=== PATIENT | male | born 1990 | race Caucasian/White ===

== ENCOUNTER 2017-09-04 20:23 | Emergency (ER) | payer MEDICAID, SELFPAY ==
[2017-09-04 20:25] VITALS: BP 155/77; PULSE 94; RESP 18; TEMP 37.2; O2SAT 94; BMI 25.8
--- NOTE | 2017-09-04 20:59 | RAD_ITS ---
STUDY: X-RAY - RIGHT ELBOW REASON FOR EXAM: Male, 26 years old. Pain and swelling. TECHNIQUE: 3 view(s) of the elbow. COMPARISON: None. FINDINGS: Normal visualized humerus, radius and ulna. Normal radiocapitellar and ulnotrochlear articulations. The soft tissue structures are unremarkable. There is no demonstrated fracture. RAD/Elbow min 3 Views IMPRESSION: Normal x-ray examination of the elbow. Electronically Signed: Medhat Bhatia MD at 21:34 EDT , Service support ,
[2017-09-04] MEDS: HYDROcodone Bitartrate/Apap 5/325 Tablet PO (21:26)
[2017-09-04] MEDS: Naproxen 500 MG Tablet PO (21:26)
[2017-09-04] MEDS: DiphenhydrAMINE 25 MG Capsule 50 MG PO (21:26)
--- NOTE | 2017-09-04 21:27 | NURSING ---
SCANNER DID NOT WORK IN THE PT ROOM
--- NOTE | 2017-09-04 22:14 | ED.VISSUMM ---
- ER Visit Summary Date of Service: 09/04/17 Chief Complaint: Bug bite right elbow History of Present Illness: The patient is a 26 M who has no primary care physician. He reports that yesterday he was mowing lawns and felt a sharp pain to his right elbow. He believes that he was bit by something. However, he was also mowing through trees and may have been stuck by something. He reports that he is a throbbing pain in his right elbow that is 10 out of 10 at worst 910 currently. Is worsened by bending or squeezing. He is not taking anything for pain. He denies any associated fever or chills. He does not want to do this is Workmen's Comp. He is right-hand dominant. Physical Examination: Vitals: Stable. Afebrile. General: Well-nourished and well-developed. Head: Normocephalic atraumatic. Neck: Supple, no lymphadenopathy. No JVD. Nontender. Cardiovascular: Regular rate and rhythm. No murmurs. Respiratory: No respiratory distress. Clear to auscultation bilaterally. Abdominal: Soft, nontender, nondistended, normal bowel sounds. No guarding, rebound, or peritoneal signs. Back: Nontender. Extremities: All surface of his right elbow is approximately 6 cm area of erythema with 1 cm scab in the center of this. There is no induration or fluctuance. There is no lymphangitic spread. He has no other rash.. Skin: Normal color, no rash. Neurologic: Alert and oriented ?3. Cranial nerves II through XII are intact. Normal strength and sensation. Psych: Normal affect. Test Results: Right elbow x-ray is negative. Emergency Department Course and Treatment: Discussion the patient that I suspect this is actually an allergic reaction rather than an infection. He is given a dose of Benadryl p.o. Repeat exam in hour later shows that the erythema has improved greatly. Patient was then given prednisone p.o. Treatment Plan: Patient will be discharged on Zyrtec and prednisone. In[facility] days for a wound check. He is instructed to return to the emergency department if he is worsening. Disposition: To home in improved and stable condition. Impression: 1. Localized allergic reaction to insect bite. This note was generated with Dragon dictation software. It may contain incorrect words, spelling, and punctuation that were not noted in review of the chart prior to signing ED Disposition - Plan for ED Patient: Disposition: Home or Assisted Living Chief Complaint: Abscess Instructions: ED Bite Sting Insect Local Allergic React Prescriptions: Cetirizine HCl [Zyrtec] 10 mg PO DAILY #14 tablet Prednisone [Deltasone] 60 mg PO DAILY #15 tablet Referrals: [facility] [NON-STAFF] - 2 Days for wound check
[2017-09-04 22:32] VITALS: RESP 18
[2017-09-04] MEDS: predniSONE 20 MG Tablet 60 MG PO (22:32)
== END 2017-09-04 22:33 | disposition home or self-care (01) ==
PROVIDERS: Emergency Provider Emergency Medicine
DX: S50.361A Insect bite (nonvenomous) of right elbow, initial encounter (principal); W57.XXXA Bitten or stung by nonvenomous insect and other nonvenomous arthropods, initial encounter; Y93.H2 Activity, gardening and landscaping; Y92.9 Unspecified place or not applicable; Z72.0 Tobacco use
CPT/HCPCS: 73080; 99283

== ENCOUNTER 2017-10-04 20:04 | Emergency (ER) | payer MEDICAID, SELFPAY ==
[2017-10-04 20:04] VITALS: BP 112/83; PULSE 93; RESP 20; TEMP 36.7; O2SAT 95; BMI 24.7
--- NOTE | 2017-10-04 20:40 | RAD_ITS ---
STUDY: X-RAY - RIGHT WRIST REASON FOR EXAM: Male, 27 years old. Pain, injury TECHNIQUE: 3 view(s) of the wrist were obtained. COMPARISON: None. FINDINGS: Normal visualized distal radius and ulna. Normal radiocarpal articulation. Normal distal radioulnar articulation. Normal carpal bones. Normal carpal articulations. Normal carpometacarpal articulation of the thumb. Normal second through fifth carpometacarpal articulations. Normal visualized metacarpal bones. The soft tissue structures are unremarkable. RAD/Wrist min 3 Views IMPRESSION: Normal x-ray examination of the wrist. Electronically Signed: Abner Singh DO at 21:57 EDT Tel [phone], Service support ,
--- NOTE | 2017-10-04 21:08 | RAD_ITS ---
STUDY: X-RAY - RIGHT HAND REASON FOR EXAM: Male, 27 years old. Hand pain after acute injury. TECHNIQUE: 3 view(s) of the hand. COMPARISON: None. FINDINGS: Normal radiocarpal articulation. Normal distal radioulnar joint. Normal visualized carpal bones. Normal carpal articulations Normal carpometacarpal articulation of the thumb. Normal second through fifth carpometacarpal joints. Prior healed fracture deformity at the base of the fifth metacarpal. Normal metacarpophalangeal joint of the thumb. Normal interphalangeal joint of the thumb. Normal proximal and distal phalanges of the thumb. Normal metacarpophalangeal joints of the second through fifth fingers. Normal proximal and distal interphalangeal joints of the second through fifth fingers. Normal phalanges of the second through fifth fingers. Soft tissue swelling. RAD/Hand Min 3 Views IMPRESSION: Soft tissue swelling without underlying acute fracture or dislocation. Old fracture deformity at the base of the fifth metacarpal. Electronically Signed: Jordyn Sahu MD at 21:58 EDT , Service support ,
--- NOTE | 2017-10-04 22:53 | ED.VISSUMM ---
- ER Visit Summary Date of Service: 10/04/17 Chief Complaint: Right wrist and hand pain History of Present Illness: The patient is a 27 M dominant. He has an old boxer's fracture of his right hand. He was cutting grass riding mower when he hit his hand versus a tree. No other injuries. This occurred 2 days ago. Denies any prior hand surgery. Physical Examination: Well-appearing young male. Vital signs are stable afebrile. HEENT exam unremarkable neck nontender lungs clear to auscultation heart regular rate and rhythm no murmur. Chest nontender abdomen soft nontender he is moving all 4 extremities are neurovascularly intact. Specifically his right shoulder and elbow are nontender. His distal right forearm primarily dorsum of the wrist and proximal dorsum of his right hand is tender mildly swollen with decreased range of motion due to discomfort. There is no gross bony deformity. The hand is neurovascularly intact. Skin is intact. Normal radial pulse. Normal cap refill. Normal sensation. Test Results: Right wrist x-ray showed no acute abnormality 3 views read by myself the radiologist. Right hand x-ray showed an old right fifth metacarpal fracture but no acute abnormality again read by myself the radiologist. Emergency Department Course and Treatment: Motrin for pain. Treatment Plan: Right hand and wrist contusion. Ice and elevate. Motrin for pain. Follow-up with Dr. Titus if not improving in 1 week. Disposition: dc Impression: Right hand and right wrist contusion This note was generated with [employer] dictation software. It may contain incorrect words, spelling, and punctuation that were not noted in review of the chart prior to signing ED Disposition - Plan for ED Patient: Chief Complaint: Upper Extremity Injury Referrals: Care Physician,No Primary [Primary Care Provider] -
--- NOTE | 2017-10-04 22:55 | ED.DEP ---
ED Disposition - Plan for ED Patient: Disposition: Home or Assisted Living Chief Complaint: Upper Extremity Injury Instructions: ED Contusion Upper Ext Referrals: Ashely Titus DO [STAFF PHYSICIAN] - 1 Week if not improving Additional Instructions: Ice and elevate. Motrin for pain and swelling. Follow-up with the orthopedic physician if not improving in 1 week.
[2017-10-04 23:04] VITALS: RESP 18; O2SAT 98
== END 2017-10-04 23:05 | disposition home or self-care (01) ==
PROVIDERS: Emergency Provider Emergency Medicine
DX: S60.221A Contusion of right hand, initial encounter (principal); S60.211A Contusion of right wrist, initial encounter; W22.09XA Striking against other stationary object, initial encounter; Y93.H2 Activity, gardening and landscaping; Y92.9 Unspecified place or not applicable; Y99.9 Unspecified external cause status; Z72.0 Tobacco use
CPT/HCPCS: 73110; 73130; 99282

== ENCOUNTER 2017-10-18 21:09 | Inpatient (IN) | payer MEDICAID, SELFPAY ==
[2017-10-18] VITALS (7 sets, daily range): BP systolic 119–146; BP diastolic 58–88; PULSE 89–106; RESP 12–28; TEMP 36.3–36.4; O2SAT 86–99; BMI 25.2; BMI 25.0
--- NOTE | 2017-10-18 21:20 | RAD_ITS ---
STUDY: X-RAY CHEST REASON FOR EXAM: Male, 27 years old. Heroin overdose status post Narcan. TECHNIQUE: Single AP portable view of the chest. COMPARISON: Prior chest radiograph of November 20, 2016. FINDINGS: Negative for pneumothorax. Mild diffuse asymmetric density of the right lung relative to the left which may be secondary to the patient's position as the patient is rotated towards the left. Otherwise negative for major consolidation, focal atelectasis or a substantial pleural effusion. Normal size heart. Normal mediastinum and marge. Normal visualized pulmonary arteries. Normal visualized aortic arch and descending thoracic aorta. Normal visualized thoracic spine. Normal visualized ribs, clavicles, and shoulders. There is no demonstrated abnormality of the visualized soft tissue structures of the upper abdomen. RAD/Chest 1 View (Portable) IMPRESSION: Asymmetric mild haziness of the right mid and lower lung zone. Early infiltrate? Asymmetric density secondary to position as the patient is turned towards the left. No additional consolidation, focal atelectasis, cardiomegaly or substantial pleural effusion. Electronically Signed: Jordyn Sahu MD at 22:05 EDT , Service support ,
[2017-10-18] MEDS: Ondansetron 4 MG/2 ML Vial IV (21:36)
[2017-10-18] MEDS: Naloxone 2 MG/2 ML Syringe NS (21:36)
[2017-10-18] MEDS: Naloxone 2 MG/2 ML Syringe 4 MG IV (22:09)
[2017-10-18] MEDS: proMETHazine 25 MG/ML Syringe 6.25 MG IV (22:09)
--- NOTE | 2017-10-18 22:18 | ED.RN ---
Pt's oxygen in mid 80s on NRB, placed on bipap (see resp settings)- pt now at 99%. gf and grandfather at bedside. mother and sister previously here and will return.
[2017-10-18 22:19] LABS: Absolute Lymphocyte Count 1.78 X10^3/ul (0.83-4.51); Absolute Neutrophil Count 16.9 X10^3/uL (2.0-7.7); Basophil# 0.03 X10^3/uL; Basophil% 0.2 % (0-1); Eosinophil# 0.08 X10^3/uL; Eosinophils% 0.4 % (0-5); Hematocrit 42.2 % (40-54); Hemoglobin 14.5 g/dl (13.0-16.5); Lymphocyte # 1.78 X10^3/ul (4.0); Lymphocyte % 9.1 % (19-41); Mean Corp Hgb Conc 34.4 g/gl (32-36); Mean Corpuscular Hgb 28.5 pg (27.0-32.0); Mean Corpuscular Volume 83.1 fL (80-94); Mean Platelet Vol. 9.7 fl (6.2-12.0); Monocyte# 0.64 X10^3/uL; Monocyte% 3.3 % (0-10); Neutrophil # 16.94 X10^3/uL (2.7-7.7); Neutrophil % 86.8 % (47-70); Platelet Count 268 K/mm3 (150-450); RBC Distribution Width CV 13.3 % (11.6-14.6); RBC Distribution Width SD 40.4 fl (35.1-43.9); Red Blood Count 5.08 M/mm3 (4.6-6.2); White Blood Count 19.5 K/mm3 (4.4-11.0)
[2017-10-18 22:20] LABS: POSITIVE COUNT NO; POSITIVE DIFFERENTIAL NO; POSITIVE MORPHOLOGY NO
[2017-10-18 22:30] LABS: Anion Gap 8 (5-15); BUN 19 mg/dL (7-18); Calcium,Total 8.5 mg/dL (8.5-10.1); Chloride 110 mmol/L (98-107); Creatinine, Serum 1.27 mg/dL (0.70-1.30); EST Glomerular Filtration Rate 72 mL/min (>60); Est Glom Filt Rate - Afr Amer 87 mL/min (>60); Estimated Creatinine Clearance 89.41 ml/min; Glucose 96 mg/dL (74-106); Potassium 3.9 mmol/L (3.5-5.1); Sodium Level 144 mmol/L (136-145)
--- NOTE | 2017-10-18 22:34 | ED.VISSUMM ---
- ER Visit Summary Date of Service: 10/18/17 Chief Complaint: Heroin overdose History of Present Illness: The patient is a 27 M presenting after heroin overdose. Patient was found with agonal respirations. He was given Narcan per EMS. On arrival he opens eyes to voice. Admits to heroin abuse. He has nausea and vomiting. Physical Examination: Vitals are stable. Patient is afebrile. Pulse ox 85% on room air. alert no acute distress. HEENT exam is unremarkable. Neck is supple. Lungs are clear and equal bilaterally. Heart is regular rate and rhythm. Abdomen is soft nontender nondistended. Extremities are unremarkable. Skin is warm and dry. No focal neurologic deficit. Opens eyes to voice and follows commands Remainder of exam is unremarkable. Emergency Department Course and Treatment: Patient was given Narcan, Zofran on arrival. He is awake and breathing but his oxygen saturation remains low in the 80s. He was given Phenergan for additional nausea. His nausea has now improved and he was placed on BiPAP. Chest x-ray shows asymmetric mild haziness of the right mid and lower lung zone. Early infiltrate? Asymmetric density secondary to position as the patient is turned towards the left. No additional consolidation, focal atelectasis, cardiomegaly or substantial pleural effusion. CBC shows a white count of 19.5. Chemistry is unremarkable. Alcohol negative. Patient was given Unasyn for aspiration. Discussed with the hospitalist for admission. Disposition: Admission Impression: Heroin overdose, respiratory failure, aspiration This note was generated with [employer] dictation software. It may contain incorrect words, spelling, and punctuation that were not noted in review of the chart prior to signing ED Disposition - Plan for ED Patient: Chief Complaint: Overdose Referrals: Care Physician,No Primary [Primary Care Provider] -
--- NOTE | 2017-10-18 22:58 | HP.PCM_ITS ---
Problem List (1) Heroin overdose Status: Acute Qualifiers: Encounter type: initial encounter (2) Aspiration into airway Status: Acute Qualifiers: Encounter type: initial encounter Qualified Code(s): T17.908A - Unspecified foreign body in respiratory tract, part unspecified causing other injury, initial encounter History of Present Illness Date of Admission: 10/18/17 Chief Complaint: aspiration, heroin overdose The patient is a 27 year old M who was seen in the emergency room at [facility] after being brought in by squad due to agonal breathing and suspected heroin overdose. Patient also vomited according to information obtained. Patient was given Narcan by squad. Review of systems was unobtainable from the patient on my examination due to lethargy and somnolence. Patient was given additional Narcan by the emergency room, patient had a total of 2 mg intranasally and 4 mg IV by the ER as well as a 2 mg intranasally by squad. Patient's pulse ox was noted to be in 85% on room air, patient was placed on 6 L via nasal cannula but then had to be placed on BiPAP to maintain his O2 sat. Lab was obtained in the emergency room as well as a chest x-ray, labs were remarkable for a white blood cell count of 19.5, his BUN was 19. Chest x-ray revealed a right lower lobe infiltrate. I was not able to obtain information from the patient due to his somnolence and lethargy, patient's family members were in the room and I was able to obtain a medical history, patient has been using IV heroin for 6 years and according to his sister has overdosed many times. Patient appears stable at this time to be admitted to PCU, he was given IV Unasyn in the emergency room and I will continue this on the floor, he will have aerosol treatments, his O2 sat will be monitored. Patient will be admitted for acute aspiration, heroin overdose, and hypoxic respiratory failure secondary to heroin overdose with vomiting and aspiration Past Medical History Allergies No Known Allergies Allergy (Verified 10/04/17 20:07) Home Medications: Ambulatory Orders Medication Instructions Recorded NK [NK] 10/04/17 Surgical History: no surgical history Psychiatric History: No pertinent psych hx Lives: With Family Smoking Status: Current every day smoker Tobacco Use: Cigarettes Alcohol: None Drugs: Heroin - *Family History Maternal History Items: Cancer - Breast Paternal History Items: No pertinent history Review of Systems Comment: Symptoms was unobtainable due to somnolence and lethargy from heroin overdose VTE Information - Inpt Only VTE Present on Admission: No VTE Mechan Device Prophylaxis: None VTE Pharm Prophylaxis ordered?: No Reason prophylaxis not ordered:: Treatment Not Indicated - Low risk for VTE Patient Problems: Active and Suspected Problems Heroin overdose (Acute) Aspiration into airway (Acute) - Physical Exam General: No apparent distress, Well developed, Well nourished, Lethargic HEENT: Atraumatic, Normocephalic Oral: Moist Mucosa Neck: Supple, No Nuchal Rigidity, Trachea Midline, Thyroid Normal Size and Texture Lungs: Clear to auscultation, Normal air movement, No rhonchi, No wheeze, No rales Cardiovascular: Regular rate, Regular Rhythm, Normal S1, Normal S2, No murmurs, No Ectopic Activity, PMI Normal, No rub noted, No Gallop Abdomen: Bowel Sounds Present, Soft, Non Tender, Non-Distended, No hernias noted Extremities: No clubbing, No cyanosis, No edema Neurological: Cranial nerves II-XII grossly intact, Neuro grossly intact, Sensory exam intact to light touch and pain Psych/Mental Status: - - Patient is somnolent but does respond to painful stimuli and moves all extremities Vital Signs Temp Pulse Resp BP Pulse Ox 97.6 F L 92 16 146/83 H 91 10/18/17 21:10 10/18/17 22:39 10/18/17 22:39 10/18/17 22:39 10/18/17 22:39 Oxygen Flow Rate (L/min) 2 Oxygen Delivery Method Non-Rebreather Weight: 80 kg Body Mass Index (BMI) 25.2 Laboratory Tests Past 24 Hrs 10/18/17 10/18/17 10/18/17 21:55 21:55 21:55 WBC 19.5 H RBC 5.08 Hgb 14.5 Hct 42.2 MCV 83.1 MCH 28.5 MCHC 34.4 RDW 13.3 RDW Differential 40.4 Plt Count 268 MPV 9.7 Immature Gran % (Auto) 0.200 Neut % (Auto) 86.8 H Lymph % (Auto) 9.1 L Harper % (Auto) 3.3 Eos % (Auto) 0.4 Baso % (Auto) 0.2 Absolute Neuts (auto) 16.9 H Absolute Lymphs (auto) 1.78 Total Counted Not Reportable Sodium 144 Potassium 3.9 Chloride 110 H Carbon Dioxide 26.0 Anion Gap 8 BUN 19 H Creatinine 1.27 Estim Creat Clear Calc 89.41 Est GFR (MDRD) Af Amer 87 Est GFR (MDRD) Non-Af 72 BUN/Creatinine Ratio 15.0 Glucose 96 Calcium 8.5 Ethyl Alcohol 4.0 Assessment/Plan All Active Problems Heroin overdose (Acute) Aspiration into airway (Acute) #1 heroin overdose-patient will be admitted to PCU, he will be monitored closely on telemetry #2 acute aspiration secondary to heroin overdose-patient will be kept on Unasyn 3 g IV every 6 hours and will be given aerosol treatments every 4 hours #3 acute hypoxic respiratory failure secondary to acute aspiration and heroin overdose-patient's O2 will be weaned if possible, he is currently on BiPAP with 50% oxygen #4 heroin abuse Code Visit Inpatient E&M: [id number] Init Hosp L3
--- NOTE | 2017-10-18 23:08 | NURSING ---
Called [facility] ED charge nurse, LISA to send patient to the floor.
[2017-10-18] MEDS: 0.9% Normal Saline 1,000 ML 150 ML IV (23:48)
[2017-10-19] VITALS (24 sets, daily range): BP systolic 99–121; BP diastolic 47–72; PULSE 72–92; RESP 12–26; TEMP 36.3–38.3; O2SAT 95–99
[2017-10-19] MEDS: Albuterol 2.5 MG/3 ML VIAL.NEB. INHALATION ×5 (02:25→19:41)
[2017-10-19 05:28] LABS: Absolute Lymphocyte Count 1.12 X10^3/ul (0.83-4.51); Absolute Neutrophil Count 15.8 X10^3/uL (2.0-7.7); Basophil# 0.03 X10^3/uL; Basophil% 0.2 % (0-1); Eosinophil# 0.01 X10^3/uL; Eosinophils% 0.1 % (0-5); Hematocrit 39.3 % (40-54); Hemoglobin 13.4 g/dl (13.0-16.5); Lymphocyte # 1.12 X10^3/ul (4.0); Lymphocyte % 6.3 % (19-41); Mean Corp Hgb Conc 34.1 g/gl (32-36); Mean Corpuscular Hgb 28.6 pg (27.0-32.0); Mean Corpuscular Volume 83.8 fL (80-94); Mean Platelet Vol. 10.2 fl (6.2-12.0); Monocyte# 0.65 X10^3/uL; Monocyte% 3.7 % (0-10); Neutrophil # 15.83 X10^3/uL (2.7-7.7); Neutrophil % 89.5 % (47-70); Platelet Count 242 K/mm3 (150-450); RBC Distribution Width CV 13.5 % (11.6-14.6); RBC Distribution Width SD 40.9 fl (35.1-43.9); Red Blood Count 4.69 M/mm3 (4.6-6.2); White Blood Count 17.7 K/mm3 (4.4-11.0)
[2017-10-19 05:29] LABS: POSITIVE COUNT NO; POSITIVE DIFFERENTIAL NO; POSITIVE MORPHOLOGY NO
--- NOTE | 2017-10-19 05:55 | RAD_ITS ---
STUDY: X-RAY CHEST REASON FOR EXAM: Male, 27 years old. Shortness of breath TECHNIQUE: 1 view COMPARISON: None. FINDINGS: There are. No pleural effusions. The heart is not enlarged. Patchy opacities in both lungs especially the right consistent with pneumonia Normal visualized thoracic spine. Normal visualized ribs, clavicles, and shoulders. There is no demonstrated abnormality of the visualized soft tissue structures of the upper abdomen. RAD/Chest 1 View (Portable) IMPRESSION: Bilateral pneumonias. Multiple and the right than the left Electronically Signed: Stepan Ann, at 7:06 EDT Tel , Service support ,
[2017-10-19] MEDS: 0.9% Normal Saline 1,000 ML 150 ML IV (06:00)
--- NOTE | 2017-10-19 11:27 | CASEMGMT ---
Addendum entered by April Salgado 10/19/17 14:09: As per physician, pt may be able to go medically today to [facility]. SRIDHAR called [facility] and left a message, awaiting a call back. KALI Reid, HAIRSPRING I INSPECTOR Original Note: Addendum entered by April Salgado 10/19/17 13:31: Girlfriend gave SW the following as pt's Medicaid number: [id number]. SRIDHAR explained will give this to Trinh with [employer]. SRIDHAR called Trinh, gave her the Medicaid number. Trinh states pt can go to [facility] tomorrow, it's two hours away, and girlfriend will take the pt. Trinh is making the referral. SRIDHAR also gave our financial dept the Medicaid number. Presumptive Medicaid will not cover the hospitalization, but as long as pt does what he needs to get the Medicaid active, then the hospital stay will be covered, as per Trinh in our financial dept. SW let pt know to follow up w/the Medicaid so that his hospitalization will be covered also, SRIDHAR explained that as per Cookie w/our financial dept the Medicaid needs to be active, not just presumptive, in order for it to cover the hospital stay. Pt also open to resources for self pay, SW gave pt information on [employer], [facility], food pantries, [facility] assist, 211 and dental clinics. SW let physician know pt can go to [facility] tomorrow. No further needs anticipated. KALI Reid, HAIRSPRING I INSPECTOR Original Note: Addendum entered by April Salgado 10/19/17 12:12: SW spoke w/pt's girlfriend Sue Logan([phone]), she states they could not call as pt was too sleepy to call Medicaid. She states she was told by Trinh and [facility], and the treatment program that we can fill out a paper application and fax it in to get presumptive eligibility, which can happen in 10 minutes. SRIDHAR explained we can complete the application but the pt still needs to sign it. Sue states understanding, SW woke up pt and he will sign the application. SW and girlfriend completed the application. SW woke pt to check on the information and have him sign the application. SW faxed the application, called [employer] and spoke to the case bank. They can push the application through on presumptive eligibility if it looks like pt will qualify. However, she spoke to her janitorial services supervisor, and though they have the application, it will likely not be assigned to caser until Sunday. SRIDHAR spoke w/pt's girlfriend in the room, let her know that the paper application will not go as quickly as calling the 800 number, and we will not be able to get presumptive Medicaid today. SRIDHAR explained if the pt wakes up more, he needs to get on the phone and call the 800 number, to see if he can get presumptive Medicaid yet today. Girlfriend states she does not know if he will wake up enough to do this. SRIDHAR also spoke w/physician, pt will be ready for discharge on the weekend. SRIDHAR called Trinh with [facility], message left. SW spoke w/pt and girlfriend in room. SRIDHAR explained to them that the best chance to get pt into a rehab from here is if he tries to stay awake long enough to call Medicaid himself, as the paper process will take longer. SRIDHAR explained that as per the doctor, pt will be ready for discharge on the weekend and the physician would not keep him in the hospital waiting for the insurance. Pt and girlfriend both state understanding. SW encouraged pt to call, is is this SW's impression pt is going to try to call Medicaid, girlfriend to let this SW know how it goes. SRIDHAR explained if we can't get the Medicaid worked out now, they will need to call on Sunday, and once the pt has presumptive Medicaid they can see if they can get pt in rehab from home. SRIDHAR will continue to follow. KALI Reid, HAIRSPRING I INSPECTOR Original Note: Trinh from [facility] spoke w/pt and girlfriend, pt is willing to go to an inpt facility, she is going to have pt or girlfriend call the 800 number for Medicaid to see if they can get pt's Medicaid activated today. If they can, then pt may be able to go for inpt treatment. Trinh to let this SW know. KALI Reid, HAIRSPRING I INSPECTOR
[2017-10-19] MEDS: Buprenorphine HCl 2 MG TAB.SUBL SL ×2 (12:48→20:41)
--- NOTE | 2017-10-19 13:38 | PCM.PN.HOSP ---
Patient Problems: Active and Suspected Problems Heroin overdose (Acute) Aspiration into airway (Acute) Subjective: Patient was seen and examined. Denies any new complaints. No acute events overnight. He has been sleeping. Fiancee at his bedside. Denies any fever or chills or shortness of breath. Feels improved. On 2 L of oxygen. Objective: Physical Exam General: No apparent distress, Well developed, Well nourished, Lethargic, on 2L oxygen HEENT: Atraumatic, Normocephalic Oral: Moist Mucosa Neck: Supple, No Nuchal Rigidity, Trachea Midline, Thyroid Normal Size and Texture Lungs: Clear to auscultation, Normal air movement, No rhonchi, No wheeze, No rales Cardiovascular: Regular rate, Regular Rhythm, Normal S1, Normal S2, No murmurs, No Ectopic Activity, PMI Normal, No rub noted, No Gallop Abdomen: Bowel Sounds Present, Soft, Non Tender, Non-Distended, No hernias noted Extremities: No clubbing, No cyanosis, No edema Neurological: Cranial nerves II-XII grossly intact, Neuro grossly intact, Sensory exam intact to light touch and pain Psych/Mental Status: - - Patient is somnolent, responds to questions but easily goes back to sleep. Vitals/I&O's: Vital Signs Temp Pulse Resp BP Pulse Ox 98.9 F 88 16 103/59 L 96 10/19/17 10:25 10/19/17 11:20 10/19/17 12:59 10/19/17 10:25 10/19/17 12:59 Oxygen Flow Rate (L/min) 2 Oxygen Delivery Method Room Air Weight: 76.8 kg Body Mass Index (BMI) 25.0 Intake and Output for Last 24 Hours 10/17/17 10/18/17 10/19/17 23:59 23:59 23:59 Intake Total 2368 / 2368 Output Total 675 / 675 Balance 1693 / 1693 Laboratory Results 10/19/17 05:05: WBC 17.7 H, RBC 4.69, Hgb 13.4, Hct 39.3 L, MCV 83.8, MCH 28.6, MCHC 34.1, RDW 13.5, RDW Differential 40.9, Plt Count 242, MPV 10.2, Immature Gran % (Auto) 0.200, Neut % (Auto) 89.5 H, Lymph % (Auto) 6.3 L, [place] % (Auto) 3.7, Eos % (Auto) 0.1, Baso % (Auto) 0.2, Absolute Neuts (auto) 15.8 H, Absolute Lymphs (auto) 1.12, Total Counted Not Reportable Current Medications Albuterol Sulfate (Ventolin Aerosols) 2.5 mg INHALATION Q4H.RT [facility] Last Admin: 10/19/17 10:38 Dose: 2.5 mg Amoxicillin/Clavulanate Potassium (Augmentin Tablet) 875 mg PO BIDCM [facility] Stop: 10/26/17 08:01 Buprenorphine HCl (Buprenorphine Hcl) 4 mg SL Q8H [facility] PRN Reason: Taper Stop: 10/22/17 15:59 Last Admin: 10/19/17 12:48 Dose: 4 mg Clonidine (Catapres) 0.1 mg PO Q2H PRN PRN PRN Reason: Hot/Cold Sweats or Anxiety Dicyclomine HCl (Bentyl) 20 mg PO Q6H PRN PRN PRN Reason: Abdomnial Discomfort Hydroxyzine Pamoate (Vistaril Pamoate Capsule) 50 mg PO Q6H PRN PRN PRN Reason: Mild Anxiety (score 1/3) Methocarbamol (Methocarbamol) 750 mg PO Q6H PRN PRN PRN Reason: Muscle Aches Nutritional Formula (Lactose Free) (Ensure Enlive) 120 ml PO 4X/DAY [facility] Last Admin: 10/19/17 12:48 Dose: 120 ml Pramipexole Dihydrochloride (Mirapex) 0.25 mg PO Q12H PRN PRN PRN Reason: RESTLESS LEG Quetiapine Fumarate (Seroquel) 25 mg PO Q6H PRN PRN PRN Reason: Moderate Anxiety (score 2/3) Sodium Chloride () 5 - 30 ml IV UD PRN PRN Reason: SALINE FLUSH Medical Necessity - Tobacco Use Smoking Status: Current every day smoker Tobacco Use: Cigarettes Assessment/Plan All Active Problems Heroin overdose (Acute) Aspiration into airway (Acute) 27-year-old male with history of polysubstance abuse comes in with altered mental status second to heroin overdose. Patient was said to have vomited and came in acute respiratory distress. Did not improve much after Narcan, patient managed overnight on BiPAP. Admitting chest x-ray is concerning for right mid and lower pneumonia. 1. Acute altered mental status/metabolic encephalopathy secondary to heroin overdose, improving, will continue to monitor. 2. Acute hypoxic failure secondary to aspiration pneumonitis/pneumonia, patient was on BiPAP on arrival. He has improved and is currently on 2-3 L of oxygen, will continue to remain off oxygen for SPO2 more than 94%, encourage use of incentive spirometer. 3. Aspiration pneumonitis/pneumonia, present on admission, likely secondary to patient's unresponsiveness, managed on IV Zosyn, will switch to p.o. Augmentin 4. Heroin overdose, no signs of acute withdrawal yet, would manage on [facility] withdrawal protocol 5. DVT PPx - Early ambulation. Code Visit Inpatient E&M: 90778 Subs Hosp L2
--- NOTE | 2017-10-19 14:01 | PN_ITS ---
Patient Problems: Active and Suspected Problems Heroin overdose (Acute) Aspiration into airway (Acute) Subjective: Patient was seen and examined. Denies any new complaints. No acute events overnight. He has been sleeping. Fiancee at his bedside. Denies any fever or chills or shortness of breath. Feels improved. On 2 L of oxygen. Objective: Physical Exam General: No apparent distress, Well developed, Well nourished, Lethargic, on 2L oxygen HEENT: Atraumatic, Normocephalic Oral: Moist Mucosa Neck: Supple, No Nuchal Rigidity, Trachea Midline, Thyroid Normal Size and Texture Lungs: Clear to auscultation, Normal air movement, No rhonchi, No wheeze, No rales Cardiovascular: Regular rate, Regular Rhythm, Normal S1, Normal S2, No murmurs, No Ectopic Activity, PMI Normal, No rub noted, No Gallop Abdomen: Bowel Sounds Present, Soft, Non Tender, Non-Distended, No hernias noted Extremities: No clubbing, No cyanosis, No edema Neurological: Cranial nerves II-XII grossly intact, Neuro grossly intact, Sensory exam intact to light touch and pain Psych/Mental Status: - - Patient is somnolent, responds to questions but easily goes back to sleep. Vitals/I&O's: Vital Signs Temp Pulse Resp BP Pulse Ox 98.9 F 88 16 103/59 L 96 10/19/17 10:25 10/19/17 11:20 10/19/17 12:59 10/19/17 10:25 10/19/17 12:59 Oxygen Flow Rate (L/min) 2 Oxygen Delivery Method Room Air Weight: 76.8 kg Body Mass Index (BMI) 25.0 Intake and Output for Last 24 Hours 10/17/17 10/18/17 10/19/17 23:59 23:59 23:59 Intake Total 2368 / 2368 Output Total 675 / 675 Balance 1693 / 1693 Laboratory Results 10/19/17 05:05: WBC 17.7 H, RBC 4.69, Hgb 13.4, Hct 39.3 L, MCV 83.8, MCH 28.6, MCHC 34.1, RDW 13.5, RDW Differential 40.9, Plt Count 242, MPV 10.2, Immature Gran % (Auto) 0.200, Neut % (Auto) 89.5 H, Lymph % (Auto) 6.3 L, [place] % (Auto) 3.7, Eos % (Auto) 0.1, Baso % (Auto) 0.2, Absolute Neuts (auto) 15.8 H, Absolute Lymphs (auto) 1.12, Total Counted Not Reportable Current Medications Albuterol Sulfate (Ventolin Aerosols) 2.5 mg INHALATION Q4H.RT [facility] Last Admin: 10/19/17 10:38 Dose: 2.5 mg Amoxicillin/Clavulanate Potassium (Augmentin Tablet) 875 mg PO BIDCM [facility] Stop: 10/26/17 08:01 Buprenorphine HCl (Buprenorphine Hcl) 4 mg SL Q8H [facility] PRN Reason: Taper Stop: 10/22/17 15:59 Last Admin: 10/19/17 12:48 Dose: 4 mg Clonidine (Catapres) 0.1 mg PO Q2H PRN PRN PRN Reason: Hot/Cold Sweats or Anxiety Dicyclomine HCl (Bentyl) 20 mg PO Q6H PRN PRN PRN Reason: Abdomnial Discomfort Hydroxyzine Pamoate (Vistaril Pamoate Capsule) 50 mg PO Q6H PRN PRN PRN Reason: Mild Anxiety (score 1/3) Methocarbamol (Methocarbamol) 750 mg PO Q6H PRN PRN PRN Reason: Muscle Aches Nutritional Formula (Lactose Free) (Ensure Enlive) 120 ml PO 4X/DAY [facility] Last Admin: 10/19/17 12:48 Dose: 120 ml Pramipexole Dihydrochloride (Mirapex) 0.25 mg PO Q12H PRN PRN PRN Reason: RESTLESS LEG Quetiapine Fumarate (Seroquel) 25 mg PO Q6H PRN PRN PRN Reason: Moderate Anxiety (score 2/3) Sodium Chloride () 5 - 30 ml IV UD PRN PRN Reason: SALINE FLUSH Medical Necessity - Tobacco Use Smoking Status: Current every day smoker Tobacco Use: Cigarettes Assessment/Plan All Active Problems Heroin overdose (Acute) Aspiration into airway (Acute) 27-year-old male with history of polysubstance abuse comes in with altered mental status second to heroin overdose. Patient was said to have vomited and came in acute respiratory distress. Did not improve much after Narcan, patient managed overnight on BiPAP. Admitting chest x-ray is concerning for right mid and lower pneumonia. 1. Acute altered mental status/metabolic encephalopathy secondary to heroin overdose, improving, will continue to monitor. 2. Acute hypoxic failure secondary to aspiration pneumonitis/pneumonia, patient was on BiPAP on arrival. He has improved and is currently on 2-3 L of oxygen, will continue to remain off oxygen for SPO2 more than 94%, encourage use of incentive spirometer. 3. Aspiration pneumonitis/pneumonia, present on admission, likely secondary to patient's unresponsiveness, managed on IV Zosyn, will switch to p.o. Augmentin 4. Heroin overdose, no signs of acute withdrawal yet, would manage on [facility] withdrawal protocol 5. DVT PPx - Early ambulation. Code Visit Inpatient E&M: 13821 Subs Hosp L2
--- NOTE | 2017-10-19 14:52 | CASEMGMT ---
SW spoke w/Trinh from [facility] and Dr. Gambino. Pt will go through the detox protocol and be discharged to [facility] on Sunday. SW spoke w/pt and girlfriend, explained pt will be part of [facility] and go through the detox protocol and will be able to go to [facility] on Sunday. Pt and girlfriend state understanding. No further social service needs. KALI Reid, SECURITY ADVISOR
--- NOTE | 2017-10-19 15:18 | NURSING ---
report called to angelita lombardo rn
[2017-10-19] MEDS: hydrOXYzine PAM 25 MG Capsule 50 MG PO (17:13)
[2017-10-19] MEDS: Amox/Clavulanate 875 MG Tablet PO (17:13)
[2017-10-19] MEDS: Ondansetron ODT 4 MG Tablet PO (17:13)
[2017-10-19] MEDS: Methocarbamol 750 MG Tablet PO (17:13)
[2017-10-19] MEDS: Dicyclomine 10 MG Capsule 20 MG PO (17:13)
[2017-10-19] MEDS: cloNIDine HCl 0.1 MG Tablet PO (17:14)
--- NOTE | 2017-10-19 17:35 | NURSING ---
received phone call from pt's mom stating that she is concerned for the patient's safety. States that pt's girlfriend talked with her and that the patient has been running his mouth about who he is drug testing for and that she is concerned someone is going to try to come in and harm him. Pt's mother did not give this nurse any details of whom she is concerned may try to come in but stated that he's been doing this for 10years and stated several times she was concerned someone may try to come in to hurt him. Supervisory It Specialist locked down unit at this nurse's request. Primary RN called, informed of situation. Primary RN called registration to have pt's name removed from directory while this nurse called machine operators whom contacted security. Security informed of above phone call and that unit placed on lock down. Wheel Aligner also informed. PCU, ICU, and ER charge nurses also informed of lockdown initiation. This nurse and primary RN Fallon went back, talked with patient regarding phone call and informed pt of lock down, removal of name from directory. Informed of visitor restriction, he was to give a list of names of limited visitors. Pt verbalized he does not feel his safety is at immediate risk but he understands his mother's concerns and verbalized his understanding of precautions taken. Ivelisse Keenan called this nurse and was updated on safety issue.
--- NOTE | 2017-10-19 17:53 | NURSING ---
RESTING IN BED, LAYING ON HIS LEFT SIDE. FEMALE AT BEDSIDE STATES HE IS HIS GIRLFRIEND CHRISTOPHE. UPDATED PT THAT FEMALE PHONED IN TO NURSES STATION, STATED SHE IS PT MOTHER AND VOICED CONCERNS REGARDING PT SAFETY HE HAS BEEN RUNNING HIS MOUTH TO OTHERS ABOUT BEING A SHAYNA AND SAYING WHO HIS DEALER IS. CONCERNED THAT DEALER OR AQUAINTANCE WILL COME TO HOSPITAL AND HARM/RETALIATE AGAINST HIM SINCE HE IS RUNNING HIS MOUTH. UPDATED PT. PT AGREEABLE TO REMOVED FROM DIRECTORY. UPDATED THAT NURSING FLOOR IS ON LOCKDOWN FOR PT SAFETY. AND REQUESTED LIST OF APPROVED VISITORS FROM PT. PT STATES I SEE WHAT MY MOM IS SAYING BUT I DON'T THINK ANYTHING WILL HAPPEN. I DON'T WORRY ABOUT THAT OTHER WHEN I AM HIGH. SHE IS JUST OVERRACTING. PT AGREES TO PROVIDE APPROVED VISITOR LIST AND INFORMED THAT NURSING SOCIAL WORK THERAPIST, SECURITY AND RESOURCE OFFICER AWARE THAT FLOOR IS NOW ON LOCKDOWN.PT UPDATED THAT HIPPA/PRIVACY WILL CONTINUE TO BE MAINTAINED. LIST OF APPROVED VISITORS: CHRISTOPHE QIAN- GIRLFRIEND TAMMIE DAVIES- PT GRANDPA WHOM MAY ALSO BRING PT SON SWEETIE IN MICHELLE DAVIES- PT UNCLE ESPERANZA CRUZ
[2017-10-19] MEDS: traZODone 50 MG Tablet PO (20:56)
[2017-10-20] VITALS (14 sets, daily range): BP systolic 92–132; BP diastolic 53–81; PULSE 74–102; RESP 14–18; TEMP 36.8–38.5; O2SAT 91–97
[2017-10-20] MEDS: Methocarbamol 750 MG Tablet PO (04:10)
[2017-10-20] MEDS: Buprenorphine HCl 2 MG TAB.SUBL SL ×3 (04:10→20:05)
[2017-10-20] MEDS: Acetaminophen 500 MG Tablet PO (04:21)
[2017-10-20] MEDS: cloNIDine HCl 0.1 MG Tablet PO ×2 (04:21→18:33)
[2017-10-20] MEDS: Pramipexole Di-HCl 0.25 MG Tablet PO ×2 (04:22→18:09)
[2017-10-20] MEDS: Albuterol 2.5 MG/3 ML VIAL.NEB. INHALATION ×3 (07:03→17:52)
[2017-10-20] MEDS: Amox/Clavulanate 875 MG Tablet PO ×2 (07:35→18:10)
[2017-10-20] MEDS: Folic Acid 1 MG Tablet PO (07:35)
--- NOTE | 2017-10-20 07:53 | PCM.PN.HOSP ---
Patient Problems: Active and Suspected Problems Heroin overdose (Acute) Aspiration into airway (Acute) Subjective: Patient was seen and examined. Still feels sleepy. Denies any cramps in his legs or hot and cold flashes. Denies any fever or chills. Been intermittently on oxygen. But for the most part has been saturating well. Objective: Physical Exam General: No apparent distress, Well developed, Well nourished, on 2L oxygen HEENT: Atraumatic, Normocephalic Oral: Moist Mucosa Neck: Supple, No Nuchal Rigidity, Trachea Midline, Thyroid Normal Size and Texture Lungs: Clear to auscultation, Normal air movement, No rhonchi, No wheeze, No rales Cardiovascular: Regular rate, Regular Rhythm, Normal S1, Normal S2, No murmurs, No Ectopic Activity, PMI Normal, No rub noted, No Gallop Abdomen: Bowel Sounds Present, Soft, Non Tender, Non-Distended, No hernias noted Extremities: No clubbing, No cyanosis, No edema Neurological: Cranial nerves II-XII grossly intact, Neuro grossly intact, Sensory exam intact to light touch and pain Psych/Mental Status: - - Patient is somnolent, responds to questions but easily goes back to sleep. Vitals/I&O's: Vital Signs Temp Pulse Resp BP Pulse Ox 99.1 F 78 18 110/55 L 91 10/20/17 06:40 10/20/17 07:05 10/20/17 07:05 10/20/17 06:40 10/20/17 07:15 Oxygen Flow Rate (L/min) [ 0 AMBULATING on Room Air] Oxygen Flow Rate (L/min) [At 0 REST on Room Air] Oxygen Flow Rate (L/min) 2 Oxygen Delivery Method Nasal Cannula Weight: 76.8 kg Body Mass Index (BMI) 25.0 Intake and Output for Last 24 Hours 10/18/17 10/19/17 10/20/17 23:59 23:59 23:59 Intake Total 2868 / 2868 300 / 300 Output Total 675 / 675 Balance 2193 / 2193 300 / 300 Laboratory Results 10/19/17 19:01: Hepatitis A IgM Ab Pending, Hep Bs Antigen Pending, Hep B Core IgM Ab Pending, Hepatitis C Ab (EIA) Pending Current Medications Acetaminophen (Tylenol) 500 mg PO Q4H PRN PRN PRN Reason: Temp > 100.4 F Last Admin: 10/20/17 04:21 Dose: 500 mg Al Hydroxide/Mg Hydroxide (Mylanta Ii) 30 ml PO Q6H PRN PRN PRN Reason: dyspesia Albuterol Sulfate (Ventolin Aerosols) 2.5 mg INHALATION Q4H.RT [facility] Last Admin: 10/20/17 07:03 Dose: 2.5 mg Amoxicillin/Clavulanate Potassium (Augmentin Tablet) 875 mg PO BIDCM [facility] Stop: 10/26/17 08:01 Last Admin: 10/20/17 07:35 Dose: 875 mg Bisacodyl (Dulcolax) 10 mg RECTAL DAILY PRN PRN Reason: Constipation Buprenorphine HCl (Buprenorphine Hcl) 4 mg SL Q8H [facility] PRN Reason: Taper Stop: 10/22/17 15:59 Last Admin: 10/20/17 04:10 Dose: 4 mg Clonidine (Catapres) 0.1 mg PO Q2H PRN PRN PRN Reason: Hot/Cold Sweats or Anxiety Last Admin: 10/20/17 04:21 Dose: 0.1 mg Dicyclomine HCl (Bentyl) 20 mg PO Q6H PRN PRN PRN Reason: Abdomnial Discomfort Last Admin: 10/19/17 17:13 Dose: 20 mg Folic Acid (Folic Acid) 1 mg PO DAILY@0800 [facility] Last Admin: 10/20/17 07:35 Dose: 1 mg Hydroxyzine Pamoate (Vistaril Pamoate Capsule) 50 mg PO Q6H PRN PRN PRN Reason: Mild Anxiety (score 1/3) Last Admin: 10/19/17 17:13 Dose: 50 mg Ibuprofen (Motrin) 600 mg PO Q8H PRN PRN PRN Reason: Mild-Moderate Pain (1-5/10) Loperamide HCl (Imodium) 2 - 4 mg PO UD PRN PRN Reason: LOOSE STOOLS Methocarbamol (Methocarbamol) 750 mg PO Q6H PRN PRN PRN Reason: Muscle Aches Last Admin: 10/20/17 04:10 Dose: 750 mg Multivitamins/Minerals (Multivitamin With Minerals) [facility] Nicotine (Nicoderm Cq (Pbkc)) 21 mg TRANSDERM. DAILY [facility] Last Admin: 10/20/17 07:35 Dose: 21 mg Nutritional Formula (Lactose Free) (Ensure Enlive) 120 ml PO 4X/DAY [facility] Last Admin: 10/20/17 07:35 Dose: 120 ml Ondansetron HCl (Zofran Odt) 4 mg PO Q6H PRN PRN PRN Reason: NAUSEA Last Admin: 10/19/17 17:13 Dose: 4 mg Pramipexole Dihydrochloride (Mirapex) 0.25 mg PO Q12H PRN PRN PRN Reason: RESTLESS LEG Last Admin: 10/20/17 04:22 Dose: 0.25 mg Quetiapine Fumarate (Seroquel) 25 mg PO Q6H PRN PRN PRN Reason: Moderate Anxiety (score 2/3) Senna (Senokot) 1 tablet PO QHS PRN PRN Reason: Constipation Sodium Chloride () 5 - 30 ml IV UD PRN PRN Reason: SALINE FLUSH Thiamine HCl (Vitamin B1) [facility] Trazodone HCl (Desyrel) 50 mg PO QHS [facility] Last Admin: 10/19/17 20:56 Dose: 50 mg Medical Necessity - Tobacco Use Smoking Status: Current every day smoker Tobacco Use: Cigarettes Assessment/Plan All Active Problems Heroin overdose (Acute) Aspiration into airway (Acute) 27-year-old male with history of polysubstance abuse comes in with altered mental status second to heroin overdose. Patient was said to have vomited and came in acute respiratory distress. Did not improve much after Narcan, patient managed initially on BiPAP. Admitting chest x-ray is concerning for right mid and lower pneumonia. 1. Acute altered mental status/metabolic encephalopathy secondary to heroin overdose, resolved. 2. Acute hypoxic failure secondary to aspiration pneumonitis/pneumonia, improving, patient was on BiPAP on arrival. On 2 L of oxygen intermittently 3. Aspiration pneumonitis/pneumonia, present on admission, likely secondary to patient's unresponsiveness, on po augmentin(day #2). 4. Acute opiate withdrawal, history of heroin overdose, stable, on [facility] withdrawal protocol 5. DVT PPx - Early ambulation. Code Visit Inpatient E&M: 38356 Subs Hosp L2
[2017-10-20] MEDS: Multivitamins,Ther W-Minerals Tablet 1 TABLET PO (10:06)
[2017-10-20] MEDS: Thiamine Hydrochloride 100 MG Tablet PO (10:06)
[2017-10-20] MEDS: hydrOXYzine PAM 25 MG Capsule 50 MG PO ×2 (12:45→18:33)
[2017-10-20] MEDS: traZODone 50 MG Tablet PO (21:59)
[2017-10-20] MEDS: QUEtiapine 25 MG Tablet PO (21:59)
[2017-10-21] VITALS (9 sets, daily range): BP systolic 109–131; BP diastolic 58–88; PULSE 70–90; RESP 12–20; TEMP 36.4–36.9; O2SAT 96
[2017-10-21] MEDS: Buprenorphine HCl 2 MG TAB.SUBL SL ×2 (03:53→15:58)
[2017-10-21 05:53] LABS: Absolute Lymphocyte Count 2.02 X10^3/ul (0.83-4.51); Absolute Neutrophil Count 6.1 X10^3/uL (2.0-7.7); Basophil# 0.02 X10^3/uL; Basophil% 0.2 % (0-1); Eosinophil# 0.31 X10^3/uL; Eosinophils% 3.5 % (0-5); Hematocrit 36.5 % (40-54); Hemoglobin 12.4 g/dl (13.0-16.5); Lymphocyte # 2.02 X10^3/ul (4.0); Lymphocyte % 22.6 % (19-41); Mean Corpuscular Hgb 28.2 pg (27.0-32.0); Mean Corpuscular Volume 83.1 fL (80-94); Mean Platelet Vol. 10.1 fl (6.2-12.0); Monocyte# 0.53 X10^3/uL; Monocyte% 5.9 % (0-10); Neutrophil # 6.06 X10^3/uL (2.7-7.7); Neutrophil % 67.7 % (47-70); Platelet Count 183 K/mm3 (150-450); RBC Distribution Width CV 12.9 % (11.6-14.6); RBC Distribution Width SD 38.5 fl (35.1-43.9); Red Blood Count 4.39 M/mm3 (4.6-6.2)
[2017-10-21 06:02] LABS: POSITIVE COUNT NO; POSITIVE DIFFERENTIAL NO; POSITIVE MORPHOLOGY NO
[2017-10-21 06:32] LABS: Anion Gap 8 (5-15); BUN 8 mg/dL (7-18); BUN/Creat Ratio 10.4 RATIO (10-20); Chloride 106 mmol/L (98-107); Creatinine, Serum 0.77 mg/dL (0.70-1.30); EST Glomerular Filtration Rate 128 mL/min (>60); Est Glom Filt Rate - Afr Amer 155 mL/min (>60); Estimated Creatinine Clearance 142.83 ml/min; Glucose 100 mg/dL (74-106); Potassium 3.3 mmol/L (3.5-5.1); Sodium Level 143 mmol/L (136-145)
[2017-10-21] MEDS: Amox/Clavulanate 875 MG Tablet PO ×2 (09:01→15:58)
[2017-10-21] MEDS: Folic Acid 1 MG Tablet PO (09:06)
[2017-10-21] MEDS: Multivitamins,Ther W-Minerals Tablet 1 TABLET PO (10:55)
[2017-10-21] MEDS: Thiamine Hydrochloride 100 MG Tablet PO (10:55)
[2017-10-21] MEDS: Albuterol 2.5 MG/3 ML VIAL.NEB. INHALATION ×3 (11:21→19:34)
--- NOTE | 2017-10-21 12:14 | PCM.PN.HOSP ---
Patient Problems: Active and Suspected Problems Heroin overdose (Acute) Aspiration into airway (Acute) Subjective: Patient was seen and examined. He feels better. Been coughing intermittently. Sometimes he feels short of breath even the oxygen saturation is normal. Denies any fever or chills. Denies any leg cramps or nausea or vomiting. Objective: Physical Exam General: Alert, Oriented x3, Cooperative, not pale or jaundiced HEENT: Atraumatic, PERRLA, EOMI, Normocephalic Neck: Supple, No JVD, Negative Carotid Bruits Lungs: Clear to auscultation, Normal air movement Cardiovascular: Regular rate, No murmurs Abdomen: Bowel Sounds Present, Soft, Non Tender Extremities: No edema, Capillary Refill Less than 3 Seconds Skin: No rashes, No breakdown Musculoskeletal: No Tenderness to Palpation of Joints or Extremities Neurological: Cranial nerves II-XII grossly intact Psych/Mental Status: Normal Affect, Appropriate Vitals/I&O's: Vital Signs Temp Pulse Resp BP Pulse Ox 98.2 F 70 16 120/77 96 10/21/17 10:00 10/21/17 10:00 10/21/17 10:00 10/21/17 10:00 10/21/17 08:58 Oxygen Flow Rate (L/min) [ 0 AMBULATING on Room Air] Oxygen Flow Rate (L/min) [At 0 REST on Room Air] Oxygen Flow Rate (L/min) 1 Oxygen Delivery Method Room Air Weight: 76.8 kg Body Mass Index (BMI) 25.0 Intake and Output for Last 24 Hours 10/19/17 10/20/17 10/21/17 23:59 23:59 23:59 Intake Total 2868 / 2868 300 / 300 Output Total 675 / 675 Balance 2193 / 2193 300 / 300 Laboratory Results 10/21/17 05:30: WBC 9.0, RBC 4.39 L, Hgb 12.4 L, Hct 36.5 L, MCV 83.1, MCH 28.2, MCHC 34.0, RDW 12.9, RDW Differential 38.5, Plt Count 183, MPV 10.1, Immature Gran % (Auto) 0.100, Neut % (Auto) 67.7, Lymph % (Auto) 22.6, [place] % (Auto) 5.9, Eos % (Auto) 3.5, Baso % (Auto) 0.2, Absolute Neuts (auto) 6.1, Absolute Lymphs (auto) 2.02, Total Counted Not Reportable 10/21/17 05:30: Sodium 143, Potassium 3.3 L, Chloride 106, Carbon Dioxide 29.0, Anion Gap 8, BUN 8, Creatinine 0.77, Estim Creat Clear Calc 142.83, Est GFR (MDRD) Af Amer 155, Est GFR (MDRD) Non-Af 128, BUN/Creatinine Ratio 10.4, Glucose 100, Calcium 8.0 L Current Medications Acetaminophen (Tylenol) 500 mg PO Q4H PRN PRN PRN Reason: Temp > 100.4 F Last Admin: 10/20/17 04:21 Dose: 500 mg Al Hydroxide/Mg Hydroxide (Mylanta Ii) 30 ml PO Q6H PRN PRN PRN Reason: dyspesia Albuterol Sulfate (Ventolin Aerosols) 2.5 mg INHALATION Q4H.RT [facility] Last Admin: 10/21/17 11:21 Dose: 2.5 mg Amoxicillin/Clavulanate Potassium (Augmentin Tablet) 875 mg PO BIDCM [facility] Stop: 10/26/17 08:01 Last Admin: 10/21/17 09:01 Dose: 875 mg Bisacodyl (Dulcolax) 10 mg RECTAL DAILY PRN PRN Reason: Constipation Buprenorphine HCl (Buprenorphine Hcl) 2 mg SL Q12H [facility] PRN Reason: Taper Stop: 10/22/17 15:59 Last Admin: 10/21/17 03:53 Dose: 2 mg Clonidine (Catapres) 0.1 mg PO Q2H PRN PRN PRN Reason: Hot/Cold Sweats or Anxiety Last Admin: 10/20/17 18:33 Dose: 0.1 mg Dicyclomine HCl (Bentyl) 20 mg PO Q6H PRN PRN PRN Reason: Abdomnial Discomfort Last Admin: 10/19/17 17:13 Dose: 20 mg Folic Acid (Folic Acid) 1 mg PO DAILY@0800 [facility] Last Admin: 10/21/17 09:06 Dose: 1 mg Hydroxyzine Pamoate (Vistaril Pamoate Capsule) 50 mg PO Q6H PRN PRN PRN Reason: Mild Anxiety (score 1/3) Last Admin: 10/20/17 18:33 Dose: 50 mg Ibuprofen (Motrin) 600 mg PO Q8H PRN PRN PRN Reason: Mild-Moderate Pain (1-5/10) Loperamide HCl (Imodium) 2 - 4 mg PO UD PRN PRN Reason: LOOSE STOOLS Methocarbamol (Methocarbamol) 750 mg PO Q6H PRN PRN PRN Reason: Muscle Aches Last Admin: 10/20/17 04:10 Dose: 750 mg Multivitamins/Minerals ([facility]itamin With Minerals) [facility] Last Admin: 10/21/17 10:55 Dose: 1 tablet Nicotine (Nicoderm Cq (Pbkc)) 21 mg TRANSDERM. DAILY [facility] Last Admin: 10/21/17 10:57 Dose: 21 mg Nutritional Formula (Lactose Free) (Ensure Enlive) 120 ml PO 4X/DAY [facility] Last Admin: 10/21/17 10:57 Dose: 120 ml Ondansetron HCl (Zofran Odt) 4 mg PO Q6H PRN PRN PRN Reason: NAUSEA Last Admin: 10/19/17 17:13 Dose: 4 mg Pramipexole Dihydrochloride (Mirapex) 0.25 mg PO Q12H PRN PRN PRN Reason: RESTLESS LEG Last Admin: 10/20/17 18:09 Dose: 0.25 mg Quetiapine Fumarate (Seroquel) 25 mg PO Q6H PRN PRN PRN Reason: Moderate Anxiety (score 2/3) Last Admin: 10/20/17 21:59 Dose: 25 mg Senna (Senokot) 1 tablet PO QHS PRN PRN Reason: Constipation Sodium Chloride () 5 - 30 ml IV UD PRN PRN Reason: SALINE FLUSH Thiamine HCl ([facility]itamin B1) [facility] Last Admin: 10/21/17 10:55 Dose: 100 mg Trazodone HCl (Desyrel) 50 mg PO QHS [facility] Last Admin: 10/20/17 21:59 Dose: 50 mg Medical Necessity - Tobacco Use Smoking Status: Current every day smoker Tobacco Use: Cigarettes Assessment/Plan All Active Problems Heroin overdose (Acute) Aspiration into airway (Acute) 27-year-old male with history of polysubstance abuse comes in with altered mental status second to heroin overdose. Patient was said to have vomited and came in acute respiratory distress. Did not improve much after Narcan, patient managed initially on BiPAP. Admitting chest x-ray is concerning for right mid and lower pneumonia. 1. Acute altered mental status/metabolic encephalopathy secondary to heroin overdose, resolved. 2. Acute hypoxic failure secondary to aspiration pneumonitis/pneumonia, resolved, encourage use of incentive spirometer. 3. Aspiration pneumonitis/pneumonia, present on admission, likely secondary to patient's unresponsiveness, on po augmentin (day #3). 4. Acute opiate withdrawal, history of heroin overdose, stable, on [facility] withdrawal protocol 5. DVT PPx - Early ambulation. Code Visit Inpatient E&M: 74248 Subs Hosp L2
--- NOTE | 2017-10-21 12:18 | PN_ITS ---
Patient Problems: Active and Suspected Problems Heroin overdose (Acute) Aspiration into airway (Acute) Subjective: Patient was seen and examined. He feels better. Been coughing intermittently. Sometimes he feels short of breath even the oxygen saturation is normal. Denies any fever or chills. Denies any leg cramps or nausea or vomiting. Objective: Physical Exam General: Alert, Oriented x3, Cooperative, not pale or jaundiced HEENT: Atraumatic, PERRLA, EOMI, Normocephalic Neck: Supple, No JVD, Negative Carotid Bruits Lungs: Clear to auscultation, Normal air movement Cardiovascular: Regular rate, No murmurs Abdomen: Bowel Sounds Present, Soft, Non Tender Extremities: No edema, Capillary Refill Less than 3 Seconds Skin: No rashes, No breakdown Musculoskeletal: No Tenderness to Palpation of Joints or Extremities Neurological: Cranial nerves II-XII grossly intact Psych/Mental Status: Normal Affect, Appropriate Vitals/I&O's: Vital Signs Temp Pulse Resp BP Pulse Ox 98.2 F 70 16 120/77 96 10/21/17 10:00 10/21/17 10:00 10/21/17 10:00 10/21/17 10:00 10/21/17 08:58 Oxygen Flow Rate (L/min) [ 0 AMBULATING on Room Air] Oxygen Flow Rate (L/min) [At 0 REST on Room Air] Oxygen Flow Rate (L/min) 1 Oxygen Delivery Method Room Air Weight: 76.8 kg Body Mass Index (BMI) 25.0 Intake and Output for Last 24 Hours 10/19/17 10/20/17 10/21/17 23:59 23:59 23:59 Intake Total 2868 / 2868 300 / 300 Output Total 675 / 675 Balance 2193 / 2193 300 / 300 Laboratory Results 10/21/17 05:30: WBC 9.0, RBC 4.39 L, Hgb 12.4 L, Hct 36.5 L, MCV 83.1, MCH 28.2 , MCHC 34.0, RDW 12.9, RDW Differential 38.5, Plt Count 183, MPV 10.1, Immature Gran % (Auto) 0.100, Neut % (Auto) 67.7, Lymph % (Auto) 22.6, [place] % (Auto) 5.9 , Eos % (Auto) 3.5, Baso % (Auto) 0.2, Absolute Neuts (auto) 6.1, Absolute Lymphs (auto) 2.02, Total Counted Not Reportable 10/21/17 05:30: Sodium 143, Potassium 3.3 L, Chloride 106, Carbon Dioxide 29.0, Anion Gap 8, BUN 8, Creatinine 0.77, Estim Creat Clear Calc 142.83, Est GFR ( MDRD) Af Amer 155, Est GFR (MDRD) Non-Af 128, BUN/Creatinine Ratio 10.4, Glucose 100, Calcium 8.0 L Current Medications Acetaminophen (Tylenol) 500 mg PO Q4H PRN PRN PRN Reason: Temp > 100.4 F Last Admin: 10/20/17 04:21 Dose: 500 mg Al Hydroxide/Mg Hydroxide (Mylanta Ii) 30 ml PO Q6H PRN PRN PRN Reason: dyspesia Albuterol Sulfate (Ventolin Aerosols) 2.5 mg INHALATION Q4H.RT [facility] Last Admin: 10/21/17 11:21 Dose: 2.5 mg Amoxicillin/Clavulanate Potassium (Augmentin Tablet) 875 mg PO BIDCM [facility] Stop: 10/26/17 08:01 Last Admin: 10/21/17 09:01 Dose: 875 mg Bisacodyl (Dulcolax) 10 mg RECTAL DAILY PRN PRN Reason: Constipation Buprenorphine HCl (Buprenorphine Hcl) 2 mg SL Q12H [facility] PRN Reason: Taper Stop: 10/22/17 15:59 Last Admin: 10/21/17 03:53 Dose: 2 mg Clonidine (Catapres) 0.1 mg PO Q2H PRN PRN PRN Reason: Hot/Cold Sweats or Anxiety Last Admin: 10/20/17 18:33 Dose: 0.1 mg Dicyclomine HCl (Bentyl) 20 mg PO Q6H PRN PRN PRN Reason: Abdomnial Discomfort Last Admin: 10/19/17 17:13 Dose: 20 mg Folic Acid (Folic Acid) 1 mg PO DAILY@0800 [facility] Last Admin: 10/21/17 09:06 Dose: 1 mg Hydroxyzine Pamoate (Vistaril Pamoate Capsule) 50 mg PO Q6H PRN PRN PRN Reason: Mild Anxiety (score 1/3) Last Admin: 10/20/17 18:33 Dose: 50 mg Ibuprofen (Motrin) 600 mg PO Q8H PRN PRN PRN Reason: Mild-Moderate Pain (1-5/10) Loperamide HCl (Imodium) 2 - 4 mg PO UD PRN PRN Reason: LOOSE STOOLS Methocarbamol (Methocarbamol) 750 mg PO Q6H PRN PRN PRN Reason: Muscle Aches Last Admin: 10/20/17 04:10 Dose: 750 mg [facility]ivitamins/Minerals ([facility]ivitamin With Minerals) [facility] Last Admin: 10/21/17 10:55 Dose: 1 tablet Nicotine (Nicoderm Cq (Pbkc)) 21 mg TRANSDERM. DAILY [facility] Last Admin: 10/21/17 10:57 Dose: 21 mg Nutritional Formula (Lactose Free) (Ensure Enlive) 120 ml PO 4X/DAY [facility] Last Admin: 10/21/17 10:57 Dose: 120 ml Ondansetron HCl (Zofran Odt) 4 mg PO Q6H PRN PRN PRN Reason: NAUSEA Last Admin: 10/19/17 17:13 Dose: 4 mg Pramipexole Dihydrochloride (Mirapex) 0.25 mg PO Q12H PRN PRN PRN Reason: RESTLESS LEG Last Admin: 10/20/17 18:09 Dose: 0.25 mg Quetiapine Fumarate (Seroquel) 25 mg PO Q6H PRN PRN PRN Reason: Moderate Anxiety (score 2/3) Last Admin: 10/20/17 21:59 Dose: 25 mg Senna (Senokot) 1 tablet PO QHS PRN PRN Reason: Constipation Sodium Chloride () 5 - 30 ml IV UD PRN PRN Reason: SALINE FLUSH Thiamine HCl (Vitamin B1) [facility] Last Admin: 10/21/17 10:55 Dose: 100 mg Trazodone HCl (Desyrel) 50 mg PO QHS [facility] Last Admin: 10/20/17 21:59 Dose: 50 mg Medical Necessity - Tobacco Use Smoking Status: Current every day smoker Tobacco Use: Cigarettes Assessment/Plan All Active Problems Heroin overdose (Acute) Aspiration into airway (Acute) 27-year-old male with history of polysubstance abuse comes in with altered mental status second to heroin overdose. Patient was said to have vomited and came in acute respiratory distress. Did not improve much after Narcan, patient managed initially on BiPAP. Admitting chest x-ray is concerning for right mid and lower pneumonia. 1. Acute altered mental status/metabolic encephalopathy secondary to heroin overdose, resolved. 2. Acute hypoxic failure secondary to aspiration pneumonitis/pneumonia, resolved , encourage use of incentive spirometer. 3. Aspiration pneumonitis/pneumonia, present on admission, likely secondary to patient's unresponsiveness, on po augmentin (day #3). 4. Acute opiate withdrawal, history of heroin overdose, stable, on [facility] withdrawal protocol 5. DVT PPx - Early ambulation. Code Visit Inpatient E&M: 79995 Subs Hosp L2
[2017-10-21] MEDS: QUEtiapine 25 MG Tablet PO (21:19)
[2017-10-21] MEDS: traZODone 50 MG Tablet PO (21:55)
[2017-10-22] VITALS (7 sets, daily range): BP systolic 120–135; BP diastolic 71–96; PULSE 58–95; RESP 16–18; TEMP 36–36.7; O2SAT 94–100
[2017-10-22] MEDS: Buprenorphine HCl 2 MG TAB.SUBL SL (04:05)
[2017-10-22 06:22] LABS: Anion Gap 8 (5-15); BUN 10 mg/dL (7-18); BUN/Creat Ratio 13.5 RATIO (10-20); Calcium,Total 8.9 mg/dL (8.5-10.1); Chloride 107 mmol/L (98-107); Creatinine, Serum 0.74 mg/dL (0.70-1.30); EST Glomerular Filtration Rate 133 mL/min (>60); Est Glom Filt Rate - Afr Amer 161 mL/min (>60); Estimated Creatinine Clearance 148.62 ml/min; Glucose 94 mg/dL (74-106); Potassium 4.1 mmol/L (3.5-5.1); Sodium Level 144 mmol/L (136-145)
[2017-10-22] MEDS: Albuterol 2.5 MG/3 ML VIAL.NEB. INHALATION ×2 (06:50→10:55)
[2017-10-22] MEDS: Amox/Clavulanate 875 MG Tablet PO (07:57)
[2017-10-22] MEDS: Folic Acid 1 MG Tablet PO (07:58)
--- NOTE | 2017-10-22 09:14 | PCM.DC ---
- Discharge Diagnoses Current Active Problems: Current Active and Chronic Problems Heroin overdose (Acute) Aspiration into airway (Acute) Reason(s) for Visit for Discharge Instructions: Acute opiate withdrawal You will use the following diet at home:: Regular Your food should be the consistency of: Regular Your liquids should be the consistency of: Regular/Thin Discharge Activity: Return to Normal Activity Additional Instructions: You are strongly advised to stop using heroin and smoking. You are encouraged to follow-up with your outpatient drug program. Allergies/Adverse Reactions: Allergies No Known Allergies Allergy (Verified 10/04/17 20:07) Medications to take at Discharge Amox/Clavulanate Tablet [Augmentin Tablet] 875 mg PO BIDCM #14 tab 10/19/17 The following prescriptions were given: Amox/Clavulanate Tablet [Augmentin Tablet] 875 mg PO BIDCM #14 tab Primary Care Physician: Care Physician,No Primary [Primary Care Provider] - Please follow up with your Primary Care Physician in: within 2 weeks Test Results: Proposed Discharge Date: 10/22/17
--- NOTE | 2017-10-22 09:18 | PCM.DC.SUM ---
Discharge Date and Diagnosis Date of Admission: 10/18/17 Date of Discharge: 10/22/17 - Primary Discharge Diagnosis Active and Suspected Problems Heroin overdose (Acute) Acute hypoxic respiratory failure Aspiration pneumonia (Acute) - Secondary Discharge Diagnosis Heroin dependence Hospital Course and Treatment Imaging Results: Clinical Impression(s) from Imaging Studies Chest X-Ray 10/18/17 21:20 IMPRESSION: Asymmetric mild haziness of the right mid and lower lung zone. Early infiltrate? Asymmetric density secondary to position as the patient is turned towards the left. No additional consolidation, focal atelectasis, cardiomegaly or substantial pleural effusion. Electronically Signed: Jordyn Sahu MD at 22:05 EDT , Service support , Chest X-Ray 10/19/17 05:55 IMPRESSION: Bilateral pneumonias. Multiple and the right than the left Electronically Signed: Stepan Ann, at 7:06 EDT Tel , Service support , None Operations: None Procedures: None Summary of Care Provided: 27-year-old male with history of polysubstance abuse comes in with altered mental status secondary to heroin overdose. Patient was said to have vomited in his unresponsive state in acute overdose and he came in acute respiratory distress. His respiratory status and mentation did not improve much after Narcan. Patient was managed initially on BiPAP. Admitting chest x-ray is concerning for right mid and lower pneumonia. 1. Acute altered mental status/metabolic encephalopathy secondary to heroin overdose, resolved. 2. Acute hypoxic failure secondary to aspiration pneumonitis/pneumonia, resolved 3. Aspiration pneumonitis/pneumonia, present on admission, likely secondary to patient's unresponsiveness, managed on augmentin 4. Acute opiate withdrawal, history of heroin overdose, improved, on [facility] withdrawal protocol Discharge Diet: No Restrictions Discharge Activity: Return to Normal Activity Home Medications: Medications to take at Discharge Amox/Clavulanate Tablet [Augmentin Tablet] 875 mg PO BIDCM #14 tab 10/19/17 Following Prescrptions Were Given to Patient: Amox/Clavulanate Tablet [Augmentin Tablet] 875 mg PO BIDCM #14 tab Primary Care Physician: Care Physician,No Primary [Primary Care Provider] - Please follow up with your Primary Care Physician in: within 2 weeks Disposition: Home Minutes spent on discharge:: 45 Patient Condition:: Stable Medical Necessity - Tobacco Use Smoking Status: Current every day smoker Tobacco Use: Cigarettes Meaningful Use Info Meaningful Use Diagnoses (Choose all that apply): None applicable Code Visit Inpatient E&M: 46260 Disch Hosp
[2017-10-22] MEDS: Multivitamins,Ther W-Minerals Tablet 1 TABLET PO (09:51)
[2017-10-22] MEDS: Thiamine Hydrochloride 100 MG Tablet PO (09:52)
[2017-10-22] MEDS: hydrOXYzine PAM 25 MG Capsule 50 MG PO (09:57)
[2017-10-22] MEDS: cloNIDine HCl 0.1 MG Tablet PO (12:11)
[2017-10-22 15:30] LABS: HEPATITIS B SURFACE AG Negative (Negative); Hepatitis A IgM Antibody Negative (Negative); Hepatitis B Core AB IgM Negative (Negative)
[2017-10-23 10:25] LABS: Hep C Antibodies >11.0 s/co ratio (0.0-0.9)
== END 2017-10-22 13:00 | disposition home or self-care (01) | DRG 917 ==
LOC: ED 21:22 → PCU 22:55 → MS3 10-19 17:43 → PCU 10-23 09:12
PROVIDERS: Admitting Provider Internal Medicine; Emergency Provider Emergency Medicine; Visit Provider Internal Medicine
DX: T40.1X1A Poisoning by heroin, accidental (unintentional), initial encounter (principal); J96.01 Acute respiratory failure with hypoxia; J69.0 Pneumonitis due to inhalation of food and vomit; G92 Toxic encephalopathy; F11.23 Opioid dependence with withdrawal; F17.210 Nicotine dependence, cigarettes, uncomplicated
CPT/HCPCS: 36415; 71045; 80048; 80074; 80320; 85025; 94002; 94003; 94640; 97802; 99251; 99285; 99406; J7030; A4216; G0463; G0480; J0295; J2405